=== PATIENT | male | born 1975 | race Caucasian/White ===

== ENCOUNTER → 2017-01-03 | Outpatient (REF) | LOC: WSOH 14:45 | DX: Z02.89 Encounter for other administrative examinations (principal) ==

== ENCOUNTER → 2017-01-03 | Outpatient (REF) | LOC: WSOH 14:45 | DX: Z02.89 Encounter for other administrative examinations (principal) ==

== ENCOUNTER → 2019-09-02 | Outpatient (CLI) | payer BC | LOC: ZCOL.LAB 15:01 | DX: U07.1 COVID-19 (principal); E10.9 Type 1 diabetes mellitus without complications ==

== ENCOUNTER 2020-04-29 09:33 | Emergency (ER) | payer BC ==
[~2020-04-29] VITALS: Ht 188 cm; Wt 136.4 kg
[2020-04-29 09:47] VITALS: TEMP 100.7
[2020-04-29] MEDS ORDERED: LIPITOR 40MG TA40 MG PO (10:03)
[2020-04-29] MEDS ORDERED: COZAAR100 MG PO (10:03)
[2020-04-29] MEDS ORDERED: NOVLOG SQ (10:03)
[2020-04-29] MEDS ORDERED: INSLANT SQ (10:04)
[2020-04-29] MEDS ORDERED: ZITHROMAX 250M250 MG PO (10:04)
[2020-04-29] MEDS ORDERED: AMOXICILLIN 8751 TAB PO (10:04)
[2020-04-29 10:52] LABS: BASO % 0.2 % (0.0-2.0); GRAN # 4.9 (1.4-6.5); GRAN % 76.1 % (42.2-75.2); HEMATOCRIT 38.5 % (42.0-52.0); HEMOGLOBIN 13.4 g/dl (13.5-18.0); LYMPH # 1.1 (1.2-3.4); LYMPH % 17.4 % (20.0-51.0); MEAN CELL VOLUME 86 fl (80.0-100.0); MEAN CORPUSCULAR HEMOGLOBIN 30 pg (27.0-31.0); MEAN CORPUSCULAR HGB CONC 35 g/dl (33.0-37.0); MEAN PLATELET VOLUME 9.8 fl (7.4-10.4); MONO # 0.4 (0.1-0.6); MONO % 5.8 % (1.7-9.3); PLATELET COUNT 247 K/mm3 (130-400); RED BLOOD COUNT 4.48 M/mm3 (4.20-5.60); REDCELL DISTRIBUTION WIDTH-CV 12.3 % (11.5-14.5)
[2020-04-29 10:57] LABS: ALBUMIN 4.1 gm/dL (3.5-5.0); BILIRUBIN,TOTAL 0.8 mg/dL (0.0-1.0); CALCIUM 8.8 mg/dL (8.4-10.2); CREATININE, serum 1.83 (0.66-1.25); POTASSIUM 3.9 mmol/L (3.4-5.0); TOTAL PROTEIN 7.4 gm/dL (6.4-8.2)
[2020-04-29 11:32] LABS: COLLECTION METHOD CLEAN CATCH
[2020-04-29] MEDS ORDERED: PROVENTIL0.09 MG/A1 IH (11:59)
[2020-04-29] MEDS ORDERED: MEDROL 4MG DOSPA4 MG PO (11:59)
[2020-04-29 12:02] LABS: MUCOUS Present /lpf; PH 5 (5-8); SQUAMOUS EPITHELIAL 0-2 /hpf; URINE APPEARANCE Hazy; URINE BILIRUBIN Negative (NEGATIVE); URINE BLOOD Negative (NEGATIVE); URINE COLOR Yellow; URINE GLUCOSE Negative (NEGATIVE); URINE KETONE Trace (NEGATIVE); URINE LEUKOCYTE ESTERASE Negative (NEGATIVE); URINE NITRATE Negative (NEGATIVE); URINE PROTEIN(semi-quant) 1+ (NEGATIVE); URINE RBC 0-2 /hpf; URINE UROBILINOGEN Negative (NEGATIVE)
[2020-04-29 12:04] LABS: URINE BACTERIA Rare /hpf
[2020-04-29 12:32] VITALS: BP 119/52; PULSE 81
== END 2020-04-29 12:34 | disposition home or self-care (01) ==
LOC: COL.ER 09:33
PROVIDERS: Emergency Medicine
DX: U07.1 COVID-19 (principal); E10.9 Type 1 diabetes mellitus without complications; Z88.2 Allergy status to sulfonamides; Z79.4 Long term (current) use of insulin; Z79.2 Long term (current) use of antibiotics
CPT/HCPCS: J2405; J7120

== ENCOUNTER → 2021-10-04 | Outpatient (CLI) | payer OTHER ==
[~2021-10-04] MED LIST: AMOXICILLIN 8751 TAB PO; COZAAR100 MG PO; INSLANT SQ; LIPITOR 40MG TA40 MG PO; MEDROL 4MG DOSPA4 MG PO; NOVLOG SQ; PROVENTIL0.09 MG/A1 IH; ZITHROMAX 250M250 MG PO
[2021-10-04 09:57] LABS: HEMATOCRIT 43.4 % (42.0-52.0); HEMOGLOBIN 14.8 g/dl (13.5-18.0); MEAN CELL VOLUME 88 fl (80.0-100.0); MEAN CORPUSCULAR HEMOGLOBIN 30 pg (27-31); MEAN CORPUSCULAR HGB CONC 34 g/dl (33.0-37.0); MEAN PLATELET VOLUME 9.2 fl (7.4-10.4); PLATELET COUNT 258 K/mm3 (130-400); RED BLOOD COUNT 4.96 M/mm3 (4.20-5.60)
[2021-10-04 10:18] LABS: ALBUMIN 4.2 gm/dL (3.5-5.0); BILIRUBIN,TOTAL 2.6 mg/dL (0.2-1.2); CALCIUM 9.3 mg/dL (8.4-10.2); CREATININE, serum 1.15 mg/dL (0.72-1.25); POTASSIUM 3.8 mmol/L (3.5-4.5); TOTAL PROTEIN 7.1 gm/dL (6.2-8.1)
== END ==
LOC: COL.LAB 09:43
DX: I10 Essential (primary) hypertension (principal); E11.9 Type 2 diabetes mellitus without complications